=== PATIENT | female | born 1995 | race Caucasian/White ===

== ENCOUNTER 2020-04-27 12:35 | Emergency (ER) | payer OTHER ==
[~2020-04-27] VITALS: Ht 157.5 cm; Wt 43.8 kg
[~2020-04-27 12:35] MED LIST: INSU100V35 SQ-INSULIN; INSU100V8 SQ; INSULIN PUMP SQ; SERT100T32 PO
--- NOTE | 2020-04-27 12:43 | NUR ---
NIKO PINA, PT WITH ANXIETY ATTACK WHILE AT WORK TODAY, RECENTLY DIAGNOSED WITH ANXIETY AND MAJOR DEPRESSIVE DISORDER. PT STATES SHE FELT ANXIOUS BECAUSE TODAY WAS HER FIRST DAY BACK TO WORK. PT DENIES SOB, CP, COUGH OR FEVERS. PT MEDICATED CAR SCRUBBER WITH VERSED, PT STATES SHE IS FEELING MUCH BETTER. PER EMS PT WITH HR 130 CAR SCRUBBER, NOW 95. RR 18, PT PREVIOUSLY BREATHING RAPID. PT TO BP, CONT PULSE OX
--- NOTE | 2020-04-27 13:11 | NUR ---
PT IS RESTING IN BED, NADN, PT APPEARS VERY COMFORTABLE.
[2020-04-27] MEDS ORDERED: SODIUM CHLORIDE 0.9% 1,000ML IVBOLUS ONE (14:00)
[2020-04-27 14:09] LABS: BASOPHILS # (AUTO) 0.04 x10^3/uL (0-0.1); BASOPHILS % (AUTO) 0 % (0-1); EOSINOPHILS # (AUTO) 0.08 x10^3/uL (0-0.4); EOSINOPHILS % (AUTO) 1 % (1-7); LYMPHOCYTES # (AUTO) 2.56 x10^3/uL (1-3.4); LYMPHOCYTES % (AUTO) 29 % (22-44); MD NO; MEAN CORPUSCULAR HEMOGLOBIN 29.9 pg (27.0-34.8); MEAN CORPUSCULAR HGB CONC 33.5 g/dL (32.4-35.8); MEAN CORPUSCULAR VOLUME 89.1 fL (80-100); MEAN PLATELET VOLUME 10.6 fL (7.4-10.4); MONOCYTES # (AUTO) 0.38 x10^3/uL (0.2-0.8); MONOCYTES % (AUTO) 4 % (2-9); NEUTROPHILS # (AUTO) 5.85 x10^3/uL (1.8-6.8); NEUTROPHILS % (AUTO) 66 % (42-75); PLATELET COUNT 233 x10^3/uL (130-400); RED CELL DISTRIBUTION WIDTH 11.8 % (9.6-15.2)
[2020-04-27 14:21] LABS: ALBUMIN 4.2 g/dL (3.4-5.0); ANION GAP 7 mmol/L (5-15); CALCIUM 9.4 mg/dL (8.5-10.1); CHLORIDE 104 mmol/L (98-107); CREATININE 1.03 mg/dL (0.55-1.02)
[2020-04-27 15:31] VITALS: BP 111/57
--- NOTE | 2020-04-27 15:41 | NUR ---
PT RESTING ON GURNEY AT THIS TIME, APPEARS COMFORTABLE, VSS NAD NOTED
== END 2020-04-27 16:19 | disposition home or self-care (01) ==
LOC: ED 15:12
DX: R00.2 Palpitations (principal); E86.0 Dehydration; R94.31 Abnormal electrocardiogram [ECG] [EKG]; E11.9 Type 2 diabetes mellitus without complications
CPT/HCPCS: 36415; 80048; 82040; 84703; 85025; 93005; 96360; 99284; J7030